=== PATIENT | male | born 1950 | race Caucasian/White ===

== ENCOUNTER → 2018-07-15 | Outpatient (CLI) | payer MEDICARE, BC ==
[~2018-07-15] MED LIST: TYLENOL500 MG GT
--- NOTE | 2018-07-15 10:52 | Diagnostic Imaging Report ---
TECHNIQUE: Magnetic resonance imaging of the LEFT KNEE was performed WITHOUT injected contrast. HISTORY: Knee pain, evaluate for meniscal tear COMPARISON: None available. FINDINGS: LIGAMENTS AND TENDONS: ACL: Intact PCL: Intact Collateral ligaments: Intact Iliotibial band: Unremarkable Popliteal tendon: Intact Extensor mechanism: Intact JOINT: Menisci: Medial: Free margin fraying versus small tear posterior horn sagittal image 25 not well seen on the additional images. Lateral: Intact without discrete tear Articular Cartilage: Medial Compartment: Partial-thickness cartilage loss, intermediate grade Lateral Compartment: Partial-thickness cartilage loss, low-grade Patellofemoral Compartment: Regions of full-thickness cartilage loss involving the medial patellar facet. Joint Fluid: Trace joint effusion. No Noe's cyst. BONE: No focal or infiltrative bone marrow replacing abnormality. No acute fracture. SOFT TISSUES: Otherwise, unremarkable. IMPRESSION: Medial meniscus posterior horn free margin fraying versus small nondisplaced tear. Tricompartmental cartilage loss, patellofemoral compartment predominant. Signed by: Dr. Mushtaq Arreaga M.D. on 07/15/2018 10:48 AM
== END ==
LOC: MRI 09:49
PROVIDERS: ATTEND Specialist
DX: M25.562 Pain in left knee (principal); S83.222A Peripheral tear of medial meniscus, current injury, left knee, initial encounter